=== PATIENT | female | born 1970 | race Caucasian/White ===

== ENCOUNTER → 2017-03-12 | Outpatient (CLI) | payer OTHER ==
--- NOTE | 2017-03-12 09:10 | RAD ---
Chest, 2 views, 03/12/2017: History: Nonproductive cough, sore throat The heart size and pulmonary vascularity are normal. No pulmonary infiltrates are seen. There is no evidence of pleural fluid. Minimal spurring is present in the spine. IMPRESSION: No acute cardiopulmonary abnormality is detected.
== END | disposition home or self-care (01) ==
LOC: DXRADRC 07:47
PROVIDERS: ATTEND Nurse Practitioner Family
DX: J02.9 Acute pharyngitis, unspecified (principal); R05 Cough; M53.80 Other specified dorsopathies, site unspecified
CPT/HCPCS: 71020

== ENCOUNTER → 2017-04-22 | Outpatient (CLI) | payer OTHER ==
--- NOTE | 2017-04-22 15:58 | RAD ---
Examination: 3 views of the right wrist and right hand History: History of fall, pain Comparison: None available. Findings: The alignment of the carpal bones grossly appears unremarkable. There is no acute fracture or dislocation identified. The alignment of the metacarpophalangeal joints, interphalangeal grossly appears unremarkable. Impression: No acute osseous findings.
== END | disposition home or self-care (01) ==
LOC: RAD 15:07
PROVIDERS: ATTEND Nurse Practitioner Family
DX: M79.641 Pain in right hand (principal); W19.XXXA Unspecified fall, initial encounter; Y93.9 Activity, unspecified; Y92.89 Other specified places as the place of occurrence of the external cause; Y99.8 Other external cause status
CPT/HCPCS: 73110; 73130

== ENCOUNTER → 2018-01-06 | Outpatient (CLI) | payer OTHER ==
--- NOTE | 2018-01-06 14:59 | RAD ---
EXAM: Chest, 2 views. HISTORY: Chest pain. COMPARISON: None. FINDINGS: Frontal and lateral views of chest are obtained. There is no infiltrate, pleural effusion or pneumothorax. The heart is normal in size. IMPRESSION: No acute pulmonary finding. Electronically signed by: Arina Dewitt MD (01/06/2018 2:55 PM) [place] [id number]
== END | disposition home or self-care (01) ==
LOC: DXRAD 12:40
PROVIDERS: ATTEND Physician Assistant Medical
DX: R07.9 Chest pain, unspecified (principal)
CPT/HCPCS: 71046

== ENCOUNTER 2019-03-21 17:20 | Emergency (ER) | payer OTHER ==
[2019-03-21 17:29] VITALS: BP 149/81
[2019-03-21] MEDS ORDERED: ONDA4TAB7 PO (17:43)
[2019-03-21] MEDS ORDERED: AMOX500T PO (17:43)
[2019-03-21] MEDS ORDERED: ALBU2.5V8 IH (17:43)
[2019-03-21] MEDS ORDERED: IBUP800T19 PO (17:43)
[2019-03-21] MEDS ORDERED: PROM118S9 PO (17:43)
--- NOTE | 2019-03-21 17:44 | PHYS DOC ---
Past History Past Medical History: No Pertinent History Past Surgical History: No Surgical History Smoking: Quit Greater Than 1 Year Alcohol Use: None Drug Use: None Adult General Chief Complaint Chief Complaint: FLU SYMPTOM HPI HPI Patient is a 48-year-old female presents with fever, body aches, cough, runny nose for the past 3 days. Patient has not had flu vaccine at this time for this current flu season. No nausea or vomiting. No sick contacts. MAXIMUM TEMPERATURE was 103 3 days ago. Symptoms improve with ibuprofen. No recent alcohol country travel.[] Review of Systems Review of Systems Constitutional: See history of present illness[] Eyes: Denies change in visual acuity, redness, or eye pain [] HENT: Denies ear pain or sore throat, see history of present illness [] Respiratory: The history of present illness, no shortness of breath[] Cardiovascular: No chest pain or palpitations[] GI: Denies abdominal pain, nausea, vomiting, bloody stools or diarrhea [] : Denies dysuria or hematuria [] Musculoskeletal: Denies back pain or joint pain [] Integument: Denies rash or skin lesions [] Neurologic: Denies headache, focal weakness or sensory changes [] Endocrine: Denies polyuria or polydipsia [] All other systems were reviewed and found to be within normal limits, except as documented in this note. Allergies Allergies Allergies Coded Allergies Type Severity Reaction Last Updated Verified No Known Drug Allergies 03/21/19 No Physical Exam Physical Exam Constitutional: Well developed, well nourished, no acute distress, non-toxic appearance. [] HENT: Normocephalic, atraumatic, bilateral external ears normal, oropharynx moist, no oral exudates, nose with clear rhinorrhea. No sinus tenderness to percussion [] Eyes: PERRLA, EOMI, conjunctiva normal, no discharge. [] Neck: Normal range of motion, no tenderness, supple, no stridor. [] Cardiovascular:Heart rate regular rhythm, no murmur [] Lungs & Thorax: Bilateral breath sounds clear to auscultation [] Abdomen: Bowel sounds normal, soft, no tenderness, no masses, no pulsatile masses. [] Skin: Warm, dry, no erythema, no rash. [] Back: No tenderness, no CVA tenderness. [] Extremities: No tenderness, no cyanosis, no clubbing, ROM intact, no edema. [] Neurologic: Alert and oriented X 3, normal motor function, normal sensory function, no focal deficits noted. [] Psychologic: Affect normal, judgement normal, mood normal. [] Current Patient Data Vital Signs Vital Signs Date Time Temp Pulse Resp B/P (MAP) Pulse Ox O2 Delivery O2 Flow Rate FiO2 03/21/19 17:29 99.9 96 16 97 Room Air EKG EKG [] Radiology/Procedures Radiology/Procedures [] Course & Med Decision Making Course & Med Decision Making Pertinent Labs and Imaging studies reviewed. (See chart for details) ED course: Patient arrived, was placed in bed, and tolerated exam well. Findings and plan were discussed with the patient and family who voiced understanding. All questions were answered. She was discharged in improved condition. Medical decision making: Patient with an acute febrile illness, most likely upper respiratory infection. She may have influenza, however, symptoms of been going on for greater than 48 hours which makes Tamiflu contraindicated. We'll treat her symptomatically. There is no evidence of pneumonia or pneumothorax. No evidence of meningitis or encephalitis. Patient is requesting antibiotics because she usually gets a sinus infection. Since she is about to move to [place], [place], will prescribe "just in case" antibiotics. Extensive counseling regarding how most sinus infections are viral and antibiotics causing resistant infections along with Clostridium difficile infections was provided to the patient and family.[] Dragon Disclaimer Dragon Disclaimer This electronic medical record was generated, in whole or in part, using a voice recognition dictation system. Departure Departure: Impression: Primary Impression: Acute febrile illness Additional Impression: Cough Disposition: 01 HOME, SELF-CARE Condition: IMPROVED Referrals: LONNIE ADAMS (PCP) Follow-up in 2 days Patient Instructions: Fever, Adult Additional Instructions: Drink plenty of fluids. Follow-up with your regular doctor in 2 days. Return to the ER if worsening difficulty breathing or any other concerns. Wait at least 2 days before starting the amoxicillin. Most sinus infections are viral and all the antibiotics will not make the symptoms improve any faster. Additionally, there are side effects that were discussed with you in the emergency department with taking unnecessary antibiotics. Scripts Amoxicillin (AMOXICILLIN) 500 Mg Tablet 500 MG PO TID for sinusitis for 10 Days, #30 TAB Prov: DENISE AGUILAR DO 11/2/19 Ibuprofen (IBUPROFEN) 800 Mg Tablet 1 TAB PO TID for pain or fever, #30 TAB Prov: DENISE AGUILAR DO 03/21/19 Ondansetron Hcl (ZOFRAN) 4 Mg Tablet 1 TAB PO Q6HRS for nausea or vomiting, #20 TAB Prov: DENISE AGUILAR DO 03/21/19 D-Methorphan Hb/Prometh Hcl (PROMETHAZINE-DM SYRUP) 118 Ml Syrup 5 ML PO PRN Q4HRS for CONGESTION, #120 ML Prov: DENISE AGUILAR DO 03/21/19 Albuterol Sulfate (VENTOLIN HFA INHALER) 18 Gm Hfa.aer.ad 2 PUFF IH PRN Q4HRS PRN for cough or shortness of breath, #1 INHALER 0 Refills Prov: DENISE AGUILAR DO 03/21/19 Problem Qualifiers DENISE AGUILAR DO Mar 21, 2019 17:44
== END 2019-03-21 17:50 | disposition home or self-care (01) ==
LOC: ER 17:20
DX: R50.9 Fever, unspecified (principal); R05 Cough; M79.10 Myalgia, unspecified site; Z87.891 Personal history of nicotine dependence
CPT/HCPCS: 99283